=== PATIENT | female | born 1930 | race Caucasian/White ===

== ENCOUNTER 2017-02-12 13:03 | Inpatient (IN) ==
[2017-02-12] MEDS ORDERED: Naloxone 0.4 MG/ML INJ IVP PRN (16:18)
[2017-02-12] MEDS ORDERED: Ondansetron 4 MG/2 ML VIAL IVP PRN (16:19)
[2017-02-12] MEDS ORDERED: Acetaminophen 325 MG TABLET PO PRN ×2 (16:19→18:17)
[2017-02-12] MEDS ORDERED: 0.9 % Sodium Chloride 1,000 ML IVC SCH ×2 (16:30→17:10)
--- NOTE | 2017-02-12 16:46 | Internal Med History&Physical ---
<Liberty Cruz - Last Filed: 02/12/17 17:10> Date of Encounter: 02/12/17 Time of Encounter: 16:00 Assessment and Plan (1) Sepsis Current visit: Yes Status: Acute 1 patient has been experiencing lower abdominal pain subjective fevers chills some nausea. She presented tachycardic heart rate 107 temperature 100.9 white count was 16 source of infection and pyelonephritis/UTI. Patient was given IV fluids. Blood cultures were drawn he was given IV Rocephin 2 continues cardiac monitoring 3 but her intake output daily weights 4 continue with IV Rocephin awaiting sensitivity both urine and blood cultures have been sent Qualifiers: Sepsis type: sepsis due to unspecified organism Qualified Code(s): A41.9 - Sepsis, unspecified organism (2) Pyelonephritis Current visit: Yes Status: Acute 1 patient has been scratching lower abdominal pain some nausea and low-grade fevers. Urine analysis revealed moderate amount of blood and leukocytes esterase and bacteria. CT of abdomen concerning for polynephritis blood and urine cultures have been collected and sent patient started on Rocephin which we will continue 2 continue with IV fluids (3) CKD (chronic kidney disease) stage 3, GFR 30-59 ml/min Current visit: No Status: Chronic 1 history of CK D stage III creatinine 1.88 slightly up from baseline. Patient has not had very good oral intake past 2 days suspect related to this. We will continue with gentle IV hydration 2 monitor intake output and daily weights 3 avoid nephrotoxins (4) Hypertension Current visit: No Status: Chronic 1 blood pressure presently stable hold diuretic for now and continue with fluids continue with ARB for now. Reevaluate in a.m. Qualifiers: Hypertension type: essential hypertension Qualified Code(s): I10 - Essential (primary) hypertension (5) Elevated troponin Current visit: Yes Status: Acute Troponin was 0.08-I suspect elevation is related to renal disease however will continue to trend (6) DVT prophylaxis Current visit: Yes Status: Acute 1 heparin subcutaneous Internal Medicine - H&P: HPI Chief complaint: abd pain Admitted From: Emergency Dept Plans for Post Hospital Care: Home History of present illness: Ms. Huff is a 87 year old female past medical history of hyperlipidemia hypertension CK D stage III preston danlos gastritis. Patient has been experiencing lower abdominal discomfort described as an achiness generalized weakness and fatigue for the past 2 days. Over the past 24-36 hrs. she has had intermittent lower abdominal discomfort some slight nausea but no vomiting or diarrhea she does admit that she has been sleeping a lot. She does admit to subjective fevers and chills. She denies any chest pain shortness of breath dysuria and urinary frequency or urgency. She presented to the [place] [facility] ER with above complaints. According to ER records lab work did reveal elevated white count at 16 , creatinine was 1.88 which appears below her baseline troponin was 0.08. Upon presentation she had temp of 100.9 and she was tachycardic in 107 blood pressure 153/76 SPO2 is 96. Urinalysis did reveal moderate amount of blood with leuk esterase and many bacteria CT of abdomen and pelvis was obtained which revealed increased perinephric stranding and mild periureteral stranding of the right kidney. No obvious hydronephrosis or obstructive calculi noted. Could be related to recently passed stone, infection, pyelonephritis. Gallbladder was mildly distended which may be reactive from adjacent changes in the right perinephric space. Sepsis protocol was followed blood cultures were obtained patient was given IV fluids and started on Rocephin. Due to the elevation of troponin She has been transferred to this facility for further treatment/evaluation. Presently patient is not appear to be any respiratory distress she denies any chest pain or lung sounds are clear heart sounds are regular S1-S2 no rubs clicks gallops murmurs noted abdomen is soft slightly tender to lower abdomen. No swelling to lower extremities she is hemodynamically stable at this time. I reviewed this case with Dr. Saavedra who agrees with plan. Past Med Surg Social Fam HX - Past Medical History Medical history: GERD, hyperlipidemia, hypertension, renal disease Psychiatric history: anxiety - Past Surgical History Surgical History: other - Social History Smoking Status: Never smoker Smokeless Tobacco Status: No Alcohol use: none Drug use: none - Family History Son Hx Family Neurologic Disorders: Yes (Stroke) Internal Medicine - H&P: Meds Buspirone HCl [Buspar] 10 mg PO BID 05/29/15 [History] Dicyclomine [Bentyl] 10 mg PO TID 05/29/15 [History] Mirtazapine [Remeron] 30 mg PO HS 05/29/15 [History] Multivitamin [Flintstones] 1 each PO DAILY 05/29/15 [History] Nebivolol [Bystolic] 20 mg PO DAILY 05/29/15 [History] Omeprazole [PriLOSEC] 20 mg PO DAILY 05/29/15 [History] Simvastatin [Zocor] 10 mg PO HS 05/29/15 [History] Triamterene/HCTZ 75/50mg [Maxzide] 1 each PO DAILY 05/29/15 [History] Fluticasone Propionate [24 Hour Allergy Relief] 2 spr NS DAILY 02/12/17 [History ] Loratadine [Allergy Relief] 10 mg PO DAILY 02/12/17 [History] Losartan [Cozaar] 25 mg PO DAILY 02/12/17 [History] Oxycodone HCl/Acetaminophen [Percocet 5-325 mg Tablet] 1 each PO Q6H PRN [History] Allergies ciprofloxacin [From Cipro] Allergy (Verified 05/29/15 07:07) SWELLING Iodinated Contrast- Oral and IV Dye [Iodinated Contrast Media - IV Dye] Allergy (Verified 05/29/15 07:07) SWELLING Penicillins [PCN] Allergy (Verified 05/08/15 14:16) Swelling of Lip/Tongue/Throat shellfish derived Allergy (Verified 05/29/15 07:07) SWELLING sulfamethoxazole [From Bactrim] Allergy (Verified 05/29/15 07:07) SWELLING trimethoprim [From Bactrim] Allergy (Verified 05/29/15 07:07) SWELLING All Systems PM: A 10-system review of systems was performed and is negative for pertinent findings except as documented above in the HPI. - Constitutional Constitutional: anorexia, fatigue, fever(s), weakness - EENT Nose, mouth and throat: no dysphagia, no nasal discharge, no neck pain, no sore throat - Cardiovascular Cardiovascular ROS IM: no chest pain, no diaphoresis, no dyspnea, no lightheadedness, no palpitations, no syncope - Respiratory Respiratory: no cough, no dyspnea, no wheezing, no excessive phlegm production - Gastrointestinal Gastrointestinal: abdominal pain, cramping, nausea - Genitourinary Genitourinary: no change in urinary stream, no dysuria, no flank pain, no hematuria - Musculoskeletal Musculoskeletal ROS IM: no numbness, no tingling - Integumentary Integumentary IM: no rash, no unusual bruising - Neurological Neurological ROS: no confusion, no convulsions, no focal weakness, no numbness, no tingling, no tremor(s) - Hematologic/Lymphatic Hematologic/Lymphatic: no easy bruising - Constitutional Vitals: Temp Pulse Resp BP Pulse Ox 98.6 F 81 16 119/50 96 02/12/17 14:31 02/12/17 14:31 02/12/17 14:31 02/12/17 14:31 02/12/17 14:31 General appearance: Present: A&O X 3 - Head Head exam: Present: atraumatic, normocephalic - Eye Eye exam: Present: PERRL, conjuntiva pink, sclera anicteric Pupils: Present: PERRL - Neck Neck exam general surgery: Present: supple, trachea midline. Absent: lymphadenopathy - Respiratory Respiratory exam: Present: CTAB. Absent: accessory muscle use, rales, rhonchi, wheezes - Cardiovascular Cardiovascular exam: Present: RRR, +S1, +S2. Absent: diastolic murmur, gallop, rubs, systolic murmur - GI/Abdominal GI/Abdominal exam: Present: normal bowel sounds, soft, tenderness, no peritoneal signs. Absent: distended - Extremities Exam Extremities exam: Present: warm, radial pulses palpable and symetrical. Absent : calf tenderness, cyanotic, pedal edema - Neurological Exam Neurological exam: Present: CN II-XII intact, oriented X3, no focal deficits. Absent: pronater drift, facial droop, speech deficit - Skin Skin exam: Present: dry, intact Internal Med - H&P Results - Diagnostic Studies Other Images Additional comments: bdomen/Pelvis CT 02/12/17 10:31 IMPRESSION: Gallbladder is mildly distended. Very mild stranding noted along the gallbladder which may be reactive from adjacent changes in the right perinephric space although right upper quadrant ultrasound would be more sensitive for evaluation of acute cholecystitis. Increased perinephric stranding and mild periureteral stranding of the right kidney. No obvious hydronephrosis or obstructing calculus noted. Findings nonspecific and could be related to recently passed stone although underlying infection, pyelonephritis is not well evaluated on noncontrast imaging. Please correlate clinically. Ventral hernias are new from the prior study likely related to prior postsurgical change. These contain loops of bowel with no evidence of obstruction. Diverticulosis without evidence of diverticulitis. D/ / 02/12/2017 11:26:05 Ilya Stewart MD / Shereen Vital Interpreting Provider: Ilya Stewart MD : <[email or web address] - Last Filed: 02/12/17 18:07> Date of Encounter: 02/12/17 Internal Medicine - H&P: HPI History of present illness: Ms. Huff is a 87 year old female All Systems PM: A 10-system review of systems was performed and is negative for pertinent findings except as documented above in the HPI. - Constitutional Vitals: Temp Pulse Resp BP Pulse Ox 98.6 F 81 16 119/50 96 02/12/17 14:31 02/12/17 14:31 02/12/17 14:31 02/12/17 14:31 02/12/17 14:31 Internal Med - H&P Results - Labs Labs: Cardiac Enzymes 02/12/17 Range/Units 17:08 Troponin I 0.06 H* (0-0.03) ng/mL - Attending Attestation I have personally performed a face to face evaluation on this patient and I discussed the assessment and plan with the nurse practitioner. I have reviewed and agree with the documented care plan. History and Exam by me shows: Ms. Huff is a 87 year old female past medical history of hyperlipidemia, hypertension, CK D stage III, preston danlos syndrome Patient has been experiencing lower abdominal discomfort described as an achiness, generalized weakness and fatigue for the past 2 days. She does admit that she has been sleeping a lot. She does admit to subjective fevers and chills. She denies any chest pain shortness of breath dysuria and urinary frequency or urgency. She presented to the [facility] ER with above complaints. Upon presentation she had temp of 100.9 and she was tachycardic in 107 blood pressure 153/76 SPO2 is 96. Urinalysis did reveal moderate amount of blood with leuko esterase and many bacteria. CT of abdomen and pelvis was obtained which revealed increased perinephric stranding and mild periureteral stranding of the right kidney. No obvious hydronephrosis or obstructive calculi noted. Could be related to recently passed stone, infection, pyelonephritis. Gen: A, A, O x 3.. Slightly lethargic Heart; S1 S2 + , RRR Abd: Soft, NT Back : No CVA tenderness a/p 1. Sepsis with UTI 2. Acute pyelonephritis Pt does meet sepsis criteria with elevated WBC, Fever and source of inf as Urine cont gentle IV fluids cont empirical abx Rocephin ER attending did mention they tobias blood cx at [facility]..so will f/u on cx results 3. Acute initial NSTEMI due to sepsis with demand ischemia trend on troponin no further work up needed
[2017-02-12] MEDS: *HR* Heparin 5,000 UNIT/ML VIAL SQ SCH (18:27)
[2017-02-12] MEDS: 0.9 % Sodium Chloride 1,000 ML IVC SCH (19:59)
[2017-02-12] MEDS: Mirtazapine 15 MG TABLET PO SCH (20:19)
[2017-02-13 04:34] LABS: Basophils % 0.3 %; Eosinophils % 0.1 %; Hematocrit 33.3 % (35.3-44.9); Hemoglobin 10.8 g/dL (11.5-15.4); Immature Granulocytes % 1.4 % (0-4); Lymphocytes # 0.4 K/mcL (0.6-4.6); Lymphocytes % 3.5 %; Mean Corpuscular HGB Conc 32.4 g/dL (31.6-35.5); Mean Corpuscular Hemoglobin 30.1 pg (28.0-33.3); Mean Corpuscular Volume 92.8 fL (83.0-100.0); Mean Platelet Volume 9.8 fL (9.4-12.4); Monocytes # 0.5 K/mcL (0.0-1.3); Monocytes % 4.2 %; Neutrophils # 11.3 K/mcL (1.6-8.9); Platelet Count 109 K/mcL (140-400); Red Blood Count 3.59 M/mcL (3.82-4.97); Red Cell Distribution Width 12.9 % (11.5-14.5); Segmented Neutrophils % 90.5 %
[2017-02-13 04:47] LABS: Calcium 8.2 mg/dL (8.6-10.8); Magnesium 1.3 mg/dL (1.6-2.6); Potassium 3.7 mEq/L (3.5-4.5)
[2017-02-13] MEDS: *HR* Heparin 5,000 UNIT/ML VIAL SQ SCH ×2 (06:01→16:54)
[2017-02-13] MEDS: 0.9 % Sodium Chloride 1,000 ML IVC SCH ×2 (06:01→16:17)
[2017-02-13] MEDS ORDERED: Magnesium Sulfate 2 GM in D5% in Water 100 ML IVPB ONE (08:02)
[2017-02-13] MEDS: Acetaminophen 325 MG TABLET PO PRN ×2 (09:32→15:04)
[2017-02-13] MEDS: Loratadine 10 MG TABLET PO SCH (09:32)
--- NOTE | 2017-02-13 13:54 | Internal Med Progress Note ---
Date of Encounter: 02/13/17 Time of Encounter: 13:52 - Assessment and plan (1) Sepsis Current Visit: Yes Status: Acute Assessment and plan: Patient is admitted with fever, tachycardia and leukocytosis. CT abdomen/ pelvis shows right-sided pyelonephritis. Lactic acid within normal limits. Continue IV hydration and IV antibiotics-Rocephin. Follow-up blood and urine cultures. Physical therapy evaluation. media services specialist consult. Qualifiers: Sepsis type: sepsis due to unspecified organism Qualified Code(s): A41.9 - Sepsis, unspecified organism (2) Pyelonephritis Current Visit: Yes Status: Acute (3) CKD (chronic kidney disease) stage 3, GFR 30-59 ml/min Current Visit: Yes Status: Chronic Assessment and plan: Serum creatinine noted to be at baseline. Avoid nephrotoxic agents and dose antibiotics according to current GFR. (4) Hypertension Current Visit: Yes Status: Chronic Qualifiers: Hypertension type: essential hypertension Qualified Code(s): I10 - Essential (primary) hypertension - Subjective Interval history: Reports feeling well; has some generalized weakness, fatigue and poor appetite; no chest or abdominal pain, shortness of breath, urinary complaints; - Constitutional Vitals: Temp Pulse Resp BP Pulse Ox 99.3 F 77 17 106/56 94 02/13/17 11:32 02/13/17 11:32 02/13/17 11:32 02/13/17 11:32 02/13/17 11:32 General appearance: Present: A&O X 3 - Respiratory Respiratory exam: Present: CTAB. Absent: accessory muscle use, rales, rhonchi, wheezes - Cardiovascular Cardiovascular exam: Present: RRR, +S1, +S2. Absent: diastolic murmur, gallop, rubs, systolic murmur - GI/Abdominal GI/Abdominal exam: Present: normal bowel sounds, soft, no peritoneal signs. Absent: distended, tenderness - Extremities Exam Extremities exam: Present: full ROM, warm, radial pulses palpable and symetrical. Absent: calf tenderness, cyanotic, pedal edema Internal Medicine: Result - Labs CBC & Chem 7: 02/13/17 03:50 02/13/17 03:50 Labs: Short CBC 02/13/17 Range/Units 03:50 WBC 12.5 H (4.3-11.1) K/mcL Hgb 10.8 L D (11.5-15.4) g/dL Hct 33.3 L (35.3-44.9) % Plt Count 109 L (140-400) K/mcL Neutrophils # 11.3 H (1.6-8.9) K/mcL BMP 02/13/17 03:50 Sodium 137 Potassium 3.7 Chloride 107 Carbon Dioxide 20 BUN 27 H Creatinine 1.44 H Glucose 95 Calcium 8.2 L Cardiac Enzymes 02/12/17 02/12/17 02/13/17 Range/Units 17:08 23:33 03:50 Troponin I 0.06 H* 0.07 H* 0.06 H* (0-0.03) ng/mL Consult Discharge Plan - Plan Referrals: Kya Lala DO [Primary Care Provider] -
[2017-02-13] MEDS: *HR* OxyCODONE/APAP 5/325 TABLET PO PRN (16:54)
--- NOTE | 2017-02-13 18:49 | Electrocardiograph Report ---
[address] [place], [place] [address] Test Date: 2017-02-12 Pat Name: [facility] Department: [id number] Room: [facility] Gender: F [place] Support Worker: [id number] : [id number] Requested By: Liberty Cruz Order Number: [id number] Reading MD: Momo Joya MD Measurements Intervals [place] Rate: 102 P: 78 OR: 140 QRS: 68 QRSD: 73 T: 55 QT: 303 QTc: 361 Interpretive Statements SINUS TACHYCARDIA LEFT ATRIAL ENLARGEMENT Electronically Signed On 02-13-2017 18:47:46 EDT by Momo Joya MD
[2017-02-13] MEDS: Mirtazapine 15 MG TABLET PO SCH (21:10)
[2017-02-14] MEDS: Acetaminophen 325 MG TABLET PO PRN (00:56)
[2017-02-14 05:31] LABS: Basophils % 0.2 %; Eosinophils % 0.2 %; Hematocrit 30.9 % (35.3-44.9); Hemoglobin 10.4 g/dL (11.5-15.4); Immature Granulocytes % 0.4 % (0-4); Lymphocytes # 0.5 K/mcL (0.6-4.6); Lymphocytes % 5.9 %; Mean Corpuscular HGB Conc 33.7 g/dL (31.6-35.5); Mean Corpuscular Hemoglobin 30.7 pg (28.0-33.3); Mean Corpuscular Volume 91.2 fL (83.0-100.0); Monocytes # 0.8 K/mcL (0.0-1.3); Monocytes % 9.6 %; Neutrophils # 7.1 K/mcL (1.6-8.9); Platelet Count 101 K/mcL (140-400); Red Blood Count 3.39 M/mcL (3.82-4.97); Red Cell Distribution Width 13.2 % (11.5-14.5); Segmented Neutrophils % 83.7 %
[2017-02-14 05:50] LABS: Calcium 8.1 mg/dL (8.6-10.8); Potassium 3.6 mEq/L (3.5-4.5)
[2017-02-14] MEDS: *HR* Heparin 5,000 UNIT/ML VIAL SQ SCH ×2 (06:31→16:21)
[2017-02-14] MEDS: *HR* OxyCODONE/APAP 5/325 TABLET PO PRN ×2 (09:25→20:17)
[2017-02-14] MEDS: Loratadine 10 MG TABLET PO SCH (13:08)
--- NOTE | 2017-02-14 14:58 | Internal Med Progress Note ---
Date of Encounter: 02/14/17 Time of Encounter: 14:15 - Assessment and plan (1) Gram-negative bacteremia Current Visit: Yes Status: Acute Assessment and plan: Gram-negative bacteremia secondary to UTI/pyelonephritis. IV antibiotics, complete plan as below. (2) Sepsis Current Visit: Yes Status: Acute Assessment and plan: Patient is admitted with fever, tachycardia and leukocytosis. CT abdomen/ pelvis shows right-sided pyelonephritis. Continue IV hydration and IV antibiotics-Rocephin. 2 out of 2 initial blood cultures grew gram-negative rods. Urine culture grows pansensitive Escherichia coli. Repeat blood cultures today. Physical therapy evaluation noted, patient has no PT needs. Qualifiers: Sepsis type: Escherichia coli Qualified Code(s): A41.51 - Sepsis due to Escherichia coli [E. coli] (3) Pyelonephritis Current Visit: Yes Status: Acute Assessment and plan: Right-sided pyelonephritis, confirmed by clinical and diagnostic imaging studies. Continue IV antibiotics as above. (4) CKD (chronic kidney disease) stage 3, GFR 30-59 ml/min Current Visit: Yes Status: Chronic Assessment and plan: Serum creatinine noted to be at baseline. Avoid nephrotoxic agents and dose antibiotics according to current GFR. (5) Hypertension Current Visit: Yes Status: Chronic Qualifiers: Hypertension type: essential hypertension Qualified Code(s): I10 - Essential (primary) hypertension - Subjective Interval history: Continues to be anxious about her son's health, who has immune deficiency and is fragile, at home; her has been at her bedside when he developed chest pain and had to be taken downstairs to the ER; She continues to have intermittent low grade fever; has some right flank pain; no chest pain or dyspnea; no nausea, vomiting; - Constitutional Vitals: Temp Pulse Resp BP Pulse Ox 99.4 F 81 18 145/98 95 02/14/17 11:28 02/14/17 11:28 02/14/17 11:28 02/14/17 11:28 02/14/17 11:28 General appearance: Present: A&O X 3 (very anxious), answers questions appropriately - Respiratory Respiratory exam: Present: CTAB. Absent: accessory muscle use, rales, rhonchi, wheezes - Cardiovascular Cardiovascular exam: Present: RRR, +S1, +S2. 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 Absent: distended, tenderness - Extremities Exam Extremities exam: Present: full ROM, warm, radial pulses palpable and symetrical. Absent: calf tenderness, cyanotic, pedal edema Internal Medicine: Result - Labs CBC & Chem 7: 02/14/17 04:54 02/14/17 04:54 Labs: Short CBC 02/14/17 Range/Units 04:54 WBC 8.5 (4.3-11.1) K/mcL Hgb 10.4 L (11.5-15.4) g/dL Hct 30.9 L (35.3-44.9) % Plt Count 101 L (140-400) K/mcL Neutrophils # 7.1 (1.6-8.9) K/mcL BMP 02/14/17 04:54 Sodium 137 Potassium 3.6 Chloride 108 Carbon Dioxide 23 BUN 21 H Creatinine 1.25 H Glucose 116 H Calcium 8.1 L Consult Discharge Plan - Plan Referrals: Kya Lala DO [Primary Care Provider] -
[2017-02-14] MEDS: Mirtazapine 15 MG TABLET PO SCH (20:17)
[2017-02-15] MEDS: *HR* OxyCODONE/APAP 5/325 TABLET PO PRN ×2 (05:40→12:07)
[2017-02-15] MEDS: *HR* Heparin 5,000 UNIT/ML VIAL SQ SCH (05:41)
[2017-02-15 06:03] LABS: Basophils % 0.2 %; Eosinophils # 0.1 K/mcL (0.0-0.6); Hematocrit 32.7 % (35.3-44.9); Hemoglobin 10.6 g/dL (11.5-15.4); Immature Granulocytes % 0.5 % (0-4); Lymphocytes # 0.6 K/mcL (0.6-4.6); Lymphocytes % 6.8 %; Mean Corpuscular HGB Conc 32.4 g/dL (31.6-35.5); Mean Corpuscular Hemoglobin 29.8 pg (28.0-33.3); Mean Corpuscular Volume 91.9 fL (83.0-100.0); Mean Platelet Volume 10.2 fL (9.4-12.4); Monocytes # 0.8 K/mcL (0.0-1.3); Monocytes % 9.8 %; Neutrophils # 6.9 K/mcL (1.6-8.9); Platelet Count 116 K/mcL (140-400); Red Blood Count 3.56 M/mcL (3.82-4.97); Red Cell Distribution Width 13.1 % (11.5-14.5); Segmented Neutrophils % 81.7 %
[2017-02-15 06:17] LABS: BUN/Creatinine Ratio 15 (6-26); Blood Urea Nitrogen 15 mg/dL (7-20); Carbon Dioxide 24 mEq/L (19-29); Chloride 107 mEq/L (98-109); Potassium 3.8 mEq/L (3.5-4.5); Sodium 139 mEq/L (136-145); eGFR For African Americans > 60 (> 60)
[2017-02-15 06:18] LABS: Calcium 8.5 mg/dL (8.6-10.8); Glucose 88 mg/dL (70-99); Osmolality,Calculated 288 (280-300); eGFR For Non-African Americans 52 (> 60)
[2017-02-15] MEDS: Loratadine 10 MG TABLET PO SCH (08:10)
--- NOTE | 2017-02-15 14:16 | Internal Med Progress Note ---
Date of Encounter: 02/15/17 Time of Encounter: 14:13 - Assessment and plan (1) Sepsis Current Visit: Yes Status: Acute Assessment and plan: Patient is admitted with fever, tachycardia and leukocytosis. CT abdomen/ pelvis shows right-sided pyelonephritis. Continue IV hydration and IV antibiotics-Rocephin. 2 out of 2 initial blood cultures grew gram-negative rods. Urine culture grows pansensitive Escherichia coli. Repeat blood cultures today. Physical therapy evaluation noted, patient will at least require home health PT. WBC normalized, patient has been afebrile. She states she feels like she has been confused and has pressured speech, speaking rapidly about issues unrelated to those we are addressing during the hospital stay. Her son states that this is her baseline, although she may be slightly altered secondary to her bacteremia. She also has an added stressor: her had CP while visiting and is currently an ACS r/o patient on 2 NE. Repeat culture from 02/14 pending. Plan: -SS eval for HH placement vs rehab. -Continue rocephin Qualifiers: Sepsis type: Escherichia coli Qualified Code(s): A41.51 - Sepsis due to Escherichia coli [E. coli] (2) Pyelonephritis Current Visit: Yes Status: Acute Assessment and plan: Right-sided pyelonephritis, confirmed by clinical and diagnostic imaging studies. Continue IV antibiotics as above. (3) Gram-negative bacteremia Current Visit: Yes Status: Acute Assessment and plan: E. coli Gram-negative bacteremia secondary to UTI/pyelonephritis. E. coli is pansensitive Plan: -Will switch to PO abx as able, will need HH per PT (4) DVT prophylaxis Current Visit: Yes Status: Acute Assessment and plan: Heparin SQ (5) CKD (chronic kidney disease) stage 3, GFR 30-59 ml/min Current Visit: Yes Status: Chronic Assessment and plan: Serum creatinine noted to be at baseline. Avoid nephrotoxic agents and dose antibiotics according to current GFR. - Subjective Interval history: Patient seen and examined. She is sitting up in the chair eating when I walk in. She immediately begins talking about a pain in her left upper thigh when she stands that she has had since age 30. She ruminates on this leg pain and compression stockings to help the sagging skin in the area. When questioned she denies f/c, cp, sob, n/v, dysuria or burning with urination, back pain. She does also state she has a slight BORGES and states she knows that she is confused about somethings, but thinks she has been confused for several months.. Son is at bedside and states that the patient appears to be at her baseline. Her is currently a r/o ACS pt on 2NE. - Constitutional Vitals: Temp Pulse Resp BP Pulse Ox 98.5 F 69 18 128/84 98 02/15/17 11:46 02/15/17 11:46 02/15/17 11:46 02/15/17 11:46 02/15/17 11:46 General appearance: Present: cooperative, A&O X 3 (very anxious), pleasant, answers questions appropriately - Head Head exam: Present: atraumatic, normocephalic - Eye Eye exam: Present: PERRL, conjuntiva pink, sclera anicteric Pupils: Present: PERRL - Neck Neck exam general surgery: Present: supple, trachea midline. Absent: lymphadenopathy - Respiratory Respiratory exam: Present: CTAB. Absent: accessory muscle use, rales, rhonchi, wheezes - Cardiovascular Cardiovascular exam: Present: RRR, +S1, +S2. Absent: diastolic murmur, gallop, rubs, systolic murmur - GI/Abdominal GI/Abdominal exam: Present: normal bowel sounds, soft, no peritoneal signs. Absent: distended, tenderness - Extremities Exam Extremities exam: Present: warm, radial pulses palpable and symetrical. Absent : calf tenderness, cyanotic, pedal edema - Back Exam Back exam: Present: normal inspection. Absent: CVA tenderness (L), CVA tenderness (R) - Psychiatric Psychiatric exam: Present: agitated, normal mood - Skin Skin exam: Present: dry, intact, warm Internal Medicine: Result - Labs CBC & Chem 7: 02/15/17 05:00 02/15/17 05:00 Labs: Short CBC 02/15/17 Range/Units 05:00 WBC 8.4 (4.3-11.1) K/mcL Hgb 10.6 L (11.5-15.4) g/dL Hct 32.7 L (35.3-44.9) % Plt Count 116 L (140-400) K/mcL Neutrophils # 6.9 (1.6-8.9) K/mcL BMP 02/15/17 05:00 Sodium 139 Potassium 3.8 Chloride 107 Carbon Dioxide 24 BUN 15 Creatinine 1.01 Glucose 88 Calcium 8.5 L Consult Discharge Plan - Plan Referrals: Kya Lala DO [Primary Care Provider] -
[2017-02-15 15:36] VITALS: BP 148/67
--- NOTE | 2017-02-15 18:06 | Discharge Summary ---
<Delfina Walker - Last Filed: 02/15/17 18:01> Date of Encounter: 02/15/17 Time of Encounter: 18:01 - Discharge Diagnosis (1) Sepsis Priority: Primary Status: Acute Qualifiers: Sepsis type: Escherichia coli Qualified Code(s): A41.51 - Sepsis due to Escherichia coli [E. coli] (2) Pyelonephritis Priority: Primary Status: Acute (3) Gram-negative bacteremia Priority: Primary Status: Acute (4) DVT prophylaxis Priority: Secondary Status: Acute (5) CKD (chronic kidney disease) stage 3, GFR 30-59 ml/min Priority: Secondary Status: Chronic - Discharge Medications Prescriptions: Cefdinir [Omnicef] 300 mg PO BID #10 capsule Home Medications: Buspirone HCl [Buspar] 10 mg PO BID 05/29/15 [History] Dicyclomine [Bentyl] 10 mg PO TID 05/29/15 [History] Mirtazapine [Remeron] 30 mg PO HS 05/29/15 [History] Multivitamin [Flintstones] 1 each PO DAILY 05/29/15 [History] Nebivolol [Bystolic] 20 mg PO DAILY 05/29/15 [History] Omeprazole [PriLOSEC] 20 mg PO DAILY 05/29/15 [History] Simvastatin [Zocor] 10 mg PO HS 05/29/15 [History] Triamterene/HCTZ 75/50mg [Maxzide] 1 each PO DAILY 05/29/15 [History] Fluticasone Propionate [24 Hour Allergy Relief] 2 spr NS DAILY 02/12/17 [History ] Loratadine [Allergy Relief] 10 mg PO DAILY 02/12/17 [History] Losartan [Cozaar] 25 mg PO DAILY 02/12/17 [History] Oxycodone HCl/Acetaminophen [Percocet 5-325 mg Tablet] 1 each PO Q6H PRN [History] Cefdinir [Omnicef] 300 mg PO BID #10 capsule 02/15/17 [Rx] Allergies/Adverse Reactions: Allergies ciprofloxacin [From Cipro] Allergy (Verified 05/29/15 07:07) SWELLING Iodinated Contrast- Oral and IV Dye [Iodinated Contrast Media - IV Dye] Allergy (Verified 05/29/15 07:07) SWELLING Penicillins [PCN] Allergy (Verified 05/08/15 14:16) Swelling of Lip/Tongue/Throat shellfish derived Allergy (Verified 05/29/15 07:07) SWELLING sulfamethoxazole [From Bactrim] Allergy (Verified 05/29/15 07:07) SWELLING trimethoprim [From Bactrim] Allergy (Verified 05/29/15 07:07) SWELLING Date of admission: 02/12/17 14:17 Primary care physician: Kya Lala DO Consults: 02/13/17 13:56 Consult to Occupational Therapy [CONS] Routine Comment: Evaluate, develop and implement POC Reason for Consult: Generalized weakness, sepsis Consult to Physical Therapy [CONS] Routine Comment: Evaluate, develop and implement POC Reason for Consult: Generalized weakness, sepsis 02/15/17 14:40 Consult to Delivery Technician [CONS] Routine Reason for SW Consult: Discharge planning, home health PT needs Discharging clinician: Aguilar Ibarra Anticipated date of discharge: 02/15/17 - Patient Status Disposition: Home, Self-Care Condition: Good - Discharge Instructions Instructions: Urinary Tract Infection in Women (DC) Follow Up With: Kya Lala DO [Primary Care Provider] - (THE OFFICE WILL CONTACT YOU FOR AN APPOINTMENT.) Additional Instructions: Take the full course of antibiotics. If you develop worsening fevers or chills, become confused or ill return to the ER. Follow up with your PCP within 5 days. - Diet and Activity Activity: ambulate only with your walker, increase activity as tolerated Diet: advance to your usual diet Hospital course: Ms. Huff is a 87 year old female who presented to [facility] with abdominal pain, fevers/chills and generalized weakness and fatigue for several days. She was found to have an elevated WBC at 16, temperature of 100.9, tachycardia and hypertension. UA showed a UTI and evidence of pyelonephritis in the the right kidney with increased perinephric stranding and mild periureteral stranding of the right kidney and no obvious hydronephrosis or obstructive calculi noted on CT abd/pelvis. Sepsis protocol was initiated with blood cultures obtained, IVF and rocephin. She was transferred to [facility] secondary to an elevated troponin of 0.08. Lactic acid was within normal limits and troponin trended down. Blood cultures grew E. coli, which was flor-sensitive. The patient has been afebrile today with her WBC normalized. She denies any complaints. She does seems slightly confused. A lengthy discussion with the patient and her son was had discussing resources at home and discharge planning. It was explained that the patient was evaluated by Pt and recommended to have home health PT services. The patient and her son state that she lives at home with her and 2 sons. She states that she has a walker at home that she uses and is able to ambulate in the room. She and her son decline home PT services at this time. She is very adamant that she not have any services come into her home as her son is immunocompromised. The patient was advised of the benefits to these home services and the risks of not utilizing them. At this time the patient and her son decline any home health services or short-term rehab placement. She will be discharged with cefdinir 300mg PO BIDx 5 days and will follow up with her PCP within 5 days. The patient and her son state understanding and agreement with this plan and she will be discharge home in stable condition. - Time Spent with Patient Total time spent providing and/or coordinating discharge services: - Constitutional Vitals: Temp Pulse Resp BP Pulse Ox 98.0 F 69 18 148/67 93 02/15/17 15:31 02/15/17 15:31 02/15/17 15:31 02/15/17 15:31 02/15/17 15:31 General appearance: Present: cooperative, A&O X 3 (very anxious), pleasant, answers questions appropriately - Head Head exam: Present: atraumatic, normocephalic - Eye Eye exam: Present: PERRL, conjuntiva pink, sclera anicteric Pupils: Present: PERRL - Neck Neck exam general surgery: Present: supple, trachea midline. Absent: lymphadenopathy - Respiratory Respiratory exam: Present: CTAB. Absent: accessory muscle use, rales, rhonchi, wheezes - Cardiovascular Cardiovascular exam: Present: RRR, +S1, +S2. Absent: diastolic murmur, gallop, rubs, systolic murmur - GI/Abdominal GI/Abdominal exam: Present: normal bowel sounds, soft, no peritoneal signs. Absent: distended, tenderness - Extremities Exam Extremities exam: Present: warm, radial pulses palpable and symetrical. Absent : calf tenderness, cyanotic, pedal edema - Back Exam Back exam: Present: normal inspection. Absent: CVA tenderness (L), CVA tenderness (R) - Neurological Exam Neurological exam: Present: CN II-XII intact, normal gait, oriented X3, no focal deficits. Absent: pronater drift, facial droop, speech deficit - Psychiatric Psychiatric exam: Present: agitated, normal mood - Skin Skin exam: Present: dry, intact, warm <Richland,Aguilar Aram - Last Filed: 02/15/17 23:38> Date of Encounter: 02/15/17 Date of admission: 02/12/17 14:17 Primary care physician: Kya Lala DO Consults: 02/13/17 13:56 Consult to Occupational Therapy [CONS] Routine Comment: Evaluate, develop and implement POC Reason for Consult: Generalized weakness, sepsis Consult to Physical Therapy [CONS] Routine Comment: Evaluate, develop and implement POC Reason for Consult: Generalized weakness, sepsis 02/15/17 14:40 Consult to Delivery Technician [CONS] Routine Reason for SW Consult: Discharge planning, home health PT needs Hospital course: Ms. Huff is a 87 year old female - Time Spent with Patient Total time spent providing and/or coordinating discharge services: - Constitutional Vitals: Temp Pulse Resp BP Pulse Ox 98.0 F 69 18 148/67 93 02/15/17 15:31 02/15/17 15:31 02/15/17 15:31 02/15/17 15:31 02/15/17 15:31 - Attending Attestation She requires minimal assistance with walking in the room. Her family and she do not want PT. There is a slight risk of Fall, the Son is aware. I did examine the patient and discussed with the Resident.
== END 2017-02-15 19:50 | disposition home or self-care (01) | DRG 872 ==
LOC: 3NENU 14:17
PROVIDERS: ADMIT Family Medicine; ATTEND Internal Medicine